=== PATIENT | female | born 1955 | race African-American/Black ===

== ENCOUNTER 2019-08-18 21:14 | Emergency (ER) | payer OTHER ==
[~2019-08-18] VITALS: Ht 152.4 cm; Wt 54.4 kg
[~2019-08-18 21:14] MED LIST: AMBIEN 5 MG TABL5 M1 PO; ASPIRIN325 PO; BYSTOLIC 5 MG5 M1 PO; BYSTOLIC10 MG PO; CLONIDINE HCL0.3 M2 PO; CLONIDINE0.1 PO; COLACE100 MG PO; COLCHICINE 0.60.6 M1 PO; LISINOPRIL20 MG PO; MOBIC15 MG PO; NORCO 5-325 TA1 EACH PO; NORVASC 5 MG TAB5 MG PO; PEPCID20 MG PO; TYLENOL325 MG PO
[2019-08-18 21:15] VITALS: BP 181/95
[2019-08-18] MEDS ORDERED: IBUPROFEN 800800 M1 PO (22:09)
[2019-08-18] MEDS ORDERED: TESSALON PERLE100 MG PO (22:09)
== END 2019-08-18 23:35 | disposition home or self-care (01) ==
LOC: ER 21:14
DX: J06.9 Acute upper respiratory infection, unspecified (principal); I10 Essential (primary) hypertension; M06.9 Rheumatoid arthritis, unspecified; M10.9 Gout, unspecified; Z98.51 Tubal ligation status; Z77.22 Contact with and (suspected) exposure to environmental tobacco smoke (acute) (chronic)